=== PATIENT | female | born 1945 | race Two or more races ===

== ENCOUNTER 2022-11-11 20:44 | Emergency (ER) | payer OTHER ==
[~2022-11-11] VITALS: Ht 154.9 cm; Wt 68.2 kg
[2022-11-11] MEDS ORDERED: HYDR-4902 PO (23:55)
[2022-11-11] MEDS ORDERED: ZOFR4T PO (23:55)
[2022-11-12] MEDS ORDERED: HYDROcodone-ACET 5/325MG TAB PO ONE
[2022-11-12] MEDS ORDERED: ONDANSETRON ODT 4 MG TAB PO ONE
[2022-11-12 00:02] VITALS: BP 160/80
== END 2022-11-12 00:16 | disposition home or self-care (01) ==
LOC: ER 20:44
DX: M25.562 Pain in left knee (principal); M19.90 Unspecified osteoarthritis, unspecified site; E78.5 Hyperlipidemia, unspecified; I10 Essential (primary) hypertension; Z88.0 Allergy status to penicillin; Z88.8 Allergy status to other drugs, medicaments and biological substances
CPT/HCPCS: 29505; 99283; Q0162